=== PATIENT | male | born 1965 | race Caucasian/White ===

== ENCOUNTER 2021-07-10 19:00 | Emergency (ER) | payer OTHER ==
[~2021-07-10] VITALS: Ht 167.6 cm; Wt 63.5 kg
[~2021-07-10 19:00] MED LIST: BAYER CHEWABLE81 MG PO
[2021-07-10 20:10] LABS: BUN/CREATININE RATIO 12 (0-10)
[2021-07-10 20:32] LABS: HEMOGLOBIN 12.4 gm/dl (14.0-17.5); RED BLOOD COUNT 4.3 M/UL (4.20-5.50); WHITE BLOOD COUNT 9.2 K/UL (4.5-11.0)
[2021-07-12 08:43] LABS: HEMOGLOBIN 14.2 gm/dl (14.0-17.5); WHITE BLOOD COUNT 10.8 K/UL (4.5-11.0)
[2021-07-12 08:50] LABS: RED BLOOD COUNT 4.76 M/UL (4.20-5.50)
[2021-07-12 09:05] LABS: BUN/CREATININE RATIO 19 (0-10)
[2021-07-13 05:25] LABS: HEMOGLOBIN 12.8 gm/dl (14.0-17.5); RED BLOOD COUNT 4.35 M/UL (4.20-5.50); WHITE BLOOD COUNT 8.3 K/UL (4.5-11.0)
--- NOTE | 2021-07-13 10:49 | NUR ---
Midline attempted x 2 in left upper arm, unsuccessfully. Unable to advance catheter fully into vein. Pt had 2 seizures during my time with him. Dr. Harp aware.
[2021-07-14 04:36] LABS: HEMOGLOBIN 12.4 gm/dl (14.0-17.5); RED BLOOD COUNT 4.24 M/UL (4.20-5.50)
[2021-07-14 05:01] LABS: BUN/CREATININE RATIO 20 (0-10)
== END 2021-07-14 13:53 | disposition home or self-care (01) ==
LOC: ER1 19:00
PROVIDERS: Internal Medicine; Student in an Organized Health Care Education/Training Program
DX: G40.409 Other generalized epilepsy and epileptic syndromes, not intractable, without status epilepticus (principal); I63.9 Cerebral infarction, unspecified; I11.9 Hypertensive heart disease without heart failure; J44.9 Chronic obstructive pulmonary disease, unspecified; F17.200 Nicotine dependence, unspecified, uncomplicated; Z88.8 Allergy status to other drugs, medicaments and biological substances; Z20.822 Contact with and (suspected) exposure to COVID-19
CPT/HCPCS: ECHO; 70450; 70496; 70498; 71045; 72125; 72128; 72131; 73030; 80048; 80053; 80076; 81001; 82550; 82553; 82962; 83036; 83605; 83735; 83874; 84100; 84439; 84443; 84484; 85025; 85652; 92526; 92610; 93005; 93306; 94640; 94760; 96372; 96374; 96375; 96376; 99285; C1751; J1885; J1953; J2060; Q2009; Q9967; U0002